=== PATIENT | male | born 1995 | race Two or more races ===

== ENCOUNTER 2020-07-05 05:16 | Emergency (ER) | payer MEDICAID ==
[~2020-07-05] VITALS: Ht 177.8 cm; Wt 72.6 kg
[2020-07-05 05:20] VITALS: BP 135/89
--- NOTE | 2020-07-05 05:20 | NUR ---
ED Nurse Note: Patient brought in by ambulance from the [facility] d/t meth use, pt reports feeling generalized body aches, reports he used meth 7 hours prior to arrival. Patient aao x 4 and ambulatory with steady gait. Patient stable during assessment, no acute distress noted.
--- NOTE | 2020-07-05 05:35 | Emergency Room Report ---
History of Present Illness General Chief Complaint: Substance Abuse Source: Patient Present Illness HPI 25-year-old male who called 911 with chief complaint of. He said he took methamphetamine tonight and also took mushrooms. He felt his heart beating fast and he said he sees things occasionally. Not suicidal homicidal. No trauma. No chest pain. Nothing made it better. Nothing made it worse. Allergies: Coded Allergies: No Known Allergies (Unverified , 07/05/20) COVID-19 Screening Contact w/high risk pt: No Experienced COVID-19 symptoms?: No COVID-19 Testing performed EXPENSE CLERK: No COVID-19 Screening: Negative COVID-19 Patient History Past Medical History: see triage record, old chart reviewed Past Surgical History: none Pertinent Family History: none Social History: Reports: drug use Immunizations: other Reviewed Nursing Documentation: PMH: Agreed; PSxH: Agreed Nursing Documentation-PMH History Of Psychiatric Problem: Yes - depression/ anxiety Review of Systems Eye: Denies: eye pain, blurred vision ENT: Denies: ear pain, nose congestion, throat swelling Respiratory: Denies: cough, shortness of breath Cardiovascular: Reports: palpitations; Denies: chest pain Gastrointestinal: Denies: abdominal pain, diarrhea, nausea, vomiting Musculoskeletal: Denies: back pain, joint pain Skin: Denies: rash Neurological: Denies: headache, numbness Endocrine: Denies: increased thirst, increased urine Hematologic/Lymphatic: Denies: easy bruising All Other Systems: negative except mentioned in HPI Physical Exam Vital Signs Date Time Temp Pulse Resp B/P (MAP) Pulse Ox O2 Delivery O2 Flow Rate FiO2 07/05/20 05:10 98.1 123 20 152/108 (123) 98 Room Air Vitals with tachycardia Sp02 EP Interpretation: reviewed, normal General Appearance: well appearing, no apparent distress, alert Head: normocephalic, atraumatic Eyes: bilateral eye PERRL, bilateral eye EOMI ENT: hearing grossly normal, normal pharynx Neck: full range of motion, supple, no meningismus Respiratory: chest non-tender, lungs clear, normal breath sounds Cardiovascular #1: regular rate, rhythm, no murmur, tachycardia - Heart rate 110 Gastrointestinal: normal bowel sounds, non tender, no mass, no organomegaly, no bruit, non-distended Musculoskeletal: back normal, normal range of motion, gait/station normal Psychiatric: mood/affect normal Medical Decision Making Diagnostic Impression: Primary Impression: Methamphetamine abuse Additional Impression: Hallucinogenic mushrooms use disorder, mild ER Course Patient with methamphetamine and mushroom abuse. Not suicidal homicidal. [place] better after Ativan. Will discharge home. Patient said he is not homeless. This patient is a chronic risk of self injury due to poor impulse control, limited coping skills, and judgment intermittently impaired by intoxication. I believe that the available clinical evidence to suggest that these characteristics derived primarily from personality disorder and are likely very stable over time. Hospitalization would likely attenuate risk of self-harm only during intermediate period, without lasting risk reduction. Serious self-harm, while possible, would likely be inadvertent, and because of impulsivity, and foreseeable. For these reasons, I do not believe hospitalization would provide meaningful reduction in risk of self-harm. Last Vital Signs Date Time Temp Pulse Resp B/P (MAP) Pulse Ox O2 Delivery O2 Flow Rate FiO2 07/05/20 05:10 98.1 123 20 152/108 (123) 98 Room Air Status: improved Disposition: HOME, SELF-CARE Condition: Stable Patient Instructions: Stimulant Use Disorder-Methamphetamines Additional Instructions: Stop using drugs. Follow-up with your doctor in 7 days. Follow-up with rehab. Return if worse. Jose Mariscal MD Jul 05, 2020 05:35
[2020-07-05] MEDS ORDERED: LORazepam 1mg tab ORAL ONE (05:45)
[2020-07-05 06:00] VITALS: BP 133/85
--- NOTE | 2020-07-05 06:00 | NUR ---
ER DISCHARGE NOTE: Patient is cleared to be discharged per ERMD, pt is aox4, on room air, with stable vital signs. pt was given dc instructions, pt was able to verbalize understanding, pt id band removed. pt is able to ambulate with steady gait. pt took all belongings. pt stable upon discharge.
== END 2020-07-05 06:00 | disposition home or self-care (01) ==
LOC: EDBD 05:16 → EMR 05:35
DX: F15.10 Other stimulant abuse, uncomplicated (principal); F16.90 Hallucinogen use, unspecified, uncomplicated
CPT/HCPCS: 99282

== ENCOUNTER 2020-07-05 08:08 | Emergency (ER) | payer MEDICAID ==
[~2020-07-05] VITALS: Ht 182.9 cm; Wt 68.0 kg
--- NOTE | 2020-07-05 08:30 | NUR ---
ED Nurse Note:pt. used amthetamins and not feling well, wants to rest and to speak with SW, SW was called
--- NOTE | 2020-07-05 08:38 | Emergency Room Report ---
History of Present Illness General Chief Complaint: Behavioral Complaint Source: Patient Present Illness HPI 25-year-old -[place] male with past medical history of polysubstance abuse presents with anxiety after taking methamphetamines and "sherms: yesterday. He denies SI, HI, auditory or visual hallucinations. He is taking all his psychiatric medications. He states that he has not in fact homeless at this time. He states "[place] and I [place] a place". He is requesting something to sleep. Denies fevers, chills, headache, vision changes, nausea, vomiting, diarrhea, cough, hemoptysis, chest pain or any other symptoms. Patient was discharged earlier after receiving Ativan The patient's symptoms were gradual onset, severity was moderate, duration since 2 days. Quality: Anxious Past medical history: Psych Past surgical history: Denies Smoking: ++ Alcohol use: Denies Drug use: ++ Review of systems: CONST: No fevers or chills, No night sweats PULMONARY: No productive cough, No shortness of breath CARDIAC: No chest pain, No palpitations GI: No vomiting, No diarrhea , No melena_or_BRBPR : No dysuria, No hematuria, No discharge NEURO: No new_focal_weakness_or_numbness, No confusion, No vision changes 14 point Review of Systems is otherwise negative except per HPI Physical Exam: GENERAL: Awake_alert_ nontoxic, no acute distress Spo2 99% on RA -normal. Anxious appearing EYES: Extraocular muscles are intact. Conjunctivae clear. Lids without swelling. No nystagmus ENT: External nose and ear normal_in_appearance. Oropharynx clear. Head_atraumatic, Moist_oral_mucosa NECK: No JVD. No meningismus. No thyromegaly. Supple. Trachea midline RESP: Normal respiratory effort. Symmetric rise. No stridor. Clear_to_auscultation_No_rales_No_wheezes CARDIAC: Regular rate and regular rhytm. No_significant pedal edema. ABDOMEN: Soft. Nondistended. Nontender_No_rebound_or_guarding. MSK: Normal muscle tone, without rigidity. Extremities without asymmetric deformity or swelling. SKIN: Warm and dry. No visible cyanosis or pallor NEUROLOGIC: Alert, oriented x3. Motor_and_sensation_grossly_intact. No truncal ataxia. Gait_normal Psych: Normal mood and affect, normal judgment and insight - COORDINATION OF CARE Case was discussed with: Patient Medical Decision Making/Plan: Differential diagnosis includes anxiety attack, generalized anxiety disorder, stress reaction, drug abuse, drug intoxication, drug overdose, among others. The patient denies any suicide attempt, overdose, or ingestion. He is requesting medication to sleep because he took meth yesterday and feels anxious They exhibit no signs of any severe toxic syndrome or drug / alcohol withdrawal. The patient was observed for a period of time in the ED with serial exams. After serial exams in the emergency department, the patient remains sober and without any suicidal ideation, homicidal ideation or evidence of grave disability They have no focal neurologic deficits and were able to ambulate with a steady gait without assistance. The patients presentation seems to be consistent with anxiety, without any indication for emergency psychiatric evaluation. day care worker was consulted and provided mental health resources as well as resources for drug abuse. Patient was counseled to stop doing methamphetamines, marijuana, and PCP as it will make his psychosis worse. He verbalizes his understanding. Patient was found several times smiling, in no distress, texting on his iPhone. The patient appears to be stable for dc home and follow with psychiatry as an outpatient. Allergies: Coded Allergies: No Known Allergies (Unverified , 07/05/20) COVID-19 Screening Contact w/high risk pt: No Experienced COVID-19 symptoms?: No COVID-19 Testing performed [employer]OR [employer] FACILITIES: No Nursing Documentation-[facility] Past Medical History: No History, Except For Hx Cardiac Problems: No - drug obuse History Of Psychiatric Problem: Yes - bipolar Physical Exam Vital Signs Date Time Temp Pulse Resp B/P (MAP) Pulse Ox O2 Delivery O2 Flow Rate FiO2 07/05/20 08:11 98.2 85 20 142/94 (110) 99 Room Air Sp02 EP Interpretation: reviewed, normal Medical Decision Making Diagnostic Impression: Primary Impression: Anxiety Additional Impressions: Methamphetamine abuse Hallucinogenic mushrooms use disorder, mild Reevaluation Time: 09:30 Last Vital Signs Date Time Temp Pulse Resp B/P (MAP) Pulse Ox O2 Delivery O2 Flow Rate FiO2 07/05/20 08:11 98.2 85 20 142/94 (110) 99 Room Air Status: improved Disposition: HOME, SELF-CARE Admit Decision Time: 10:00 Condition: Stable Patient Instructions: Generalized Anxiety Disorder Additional Instructions: Instructions for patient/regulatory compliance director: Follow up with your physician in 1-2 days. Stop doing drugs. Stop doing meth. Stop doing marijuana. Stop doing sherms. All of these things are going to make your psychiatric condition worse Follow-up with your doctor sooner if your condition requires a more timely clinical reevaluation. Return to the emergency department immediately if you feel that your condition is worsening or if you have any new or concerning symptoms. Review your discharge instructions and take any prescriptions given as instructed. [facility] PROVIDES FREE OR LOW-COST HEALTH SERVICES TO PEOPLE WHO CAN SHOW PROOF THAT THEY LIVE IN [facility]. TO FIND MORE CLINICS PARTNERED WITH [facility] TO PROVIDE SERVICE, PLEASE CALL . Marissa Akbar D.O. Jul 05, 2020 08:38
--- NOTE | 2020-07-05 08:44 | NUR ---
ED Nurse Note:SW is evaluating pt. in the room
[2020-07-05] MEDS ORDERED: LORazepam 1mg tab ORAL ONE (08:45)
[2020-07-05 08:46] VITALS: BP 142/94
--- NOTE | 2020-07-05 09:00 | NUR ---
PER FERMENTING CELLARS SUPERVISOR PATIENT CAN be discharged all the referral given to patient. refuse to sign the homeless wavier . per patient i did not provide the ambulance service for him to go places
--- NOTE | 2020-07-05 09:16 | NUR ---
MULTICULTURAL INTERNSHIP NOTE SW met w/ pt to assess. Pt presents as A&O 4x. PT resides w/ his friend at [address] [place] [id number]. PT is currently unemployed, and recently applied for GR and food stamp. Pt shares he recreationally uses methamphetamine. Pt does not appear to be motivated quitting substance abuse. PT declined substance abuse resource. Pt reports he is feeling "funny" after using meth, that he could not stop laughing. Pt was intermittently laughing while this SW assessed him.PT also reports he hallucinates post substance abuse. However, pt was unable to describe the hallucination that he is currently experiencing. Pt shares hx of Bipolar D/O and Anxiety. PT has been non-compliant w/ medication and outpatient mental health services. Pt has hx of MH hospitalization, last admitted to [facility] 3 weeks ago. SW encouraged pt to F/U w/ outpatient mental health services. Pt declined this SW to assist w/ outpatient appointment and also declined to receive mental health resource. PT admits he was feeling suicidal earlier after using meth but is able to contract for safety. His plan was to overdose meth. PT shares he does not think he will take more meth today as he does not feel "cool". SW encouraged pt to call suicide prevention hotline if his SI urges or also consider inpatient MH hospitalization if he cannot contract for safety, he could walk in to ER and get evaluated. PT verbalized understanding. Pt is ambulatory w/o DME and independent w/ ADLs. Pt reports he plans to return home upon DC.
--- NOTE | 2020-07-05 09:51 | NUR ---
Homeless Discharge: Patient is being discharged from medical care. Awake, alert and oriented x3. After care instructions, including referral to community resources were given. Patient verbalized understanding of After care instructions; at this time patient does not request medications, equipment or placement. Patient refuse to signed patient consent in the medical record for patient destination upon discharge. All medical devices such as IV and ID band were removed. Patient ambulated out with all personal belongings with steady gait.
[2020-07-05 09:53] VITALS: BP 130/80
== END 2020-07-05 09:55 | disposition home or self-care (01) ==
LOC: EMR 08:37
DX: F41.9 Anxiety disorder, unspecified (principal); F15.10 Other stimulant abuse, uncomplicated; F16.90 Hallucinogen use, unspecified, uncomplicated
CPT/HCPCS: 99283